=== PATIENT | male | born 1990 | race Caucasian/White ===

== ENCOUNTER 2020-10-10 16:36 | Emergency (ER) | payer MEDICAID ==
[~2020-10-10] VITALS: Ht 180.3 cm; Wt 76.2 kg
--- NOTE | 2020-10-10 16:53 | NUR ---
TO ER BED 1, C/O BACK PAIN FOR 3 DAYS, ATTACHED TO MONITOR, AWAITING MD TORRES
--- NOTE | 2020-10-10 16:55 | NUR ---
AT BEDSIDE FOR EVAL
--- NOTE | 2020-10-10 17:05 | NUR ---
TAKEN TO CT
[2020-10-10] MEDS ORDERED: KETOROLAC TROMETHAMINE INJ 30 MG/ML VIAL ONE (17:08)
[2020-10-10] MEDS ORDERED: CYCLOBENZAPRINE 10 MG TABLET ONE (17:08)
[2020-10-10] MEDS: KETOROLAC TROMETHAMINE INJ 60 MG/2 ML VIAL IM ONE (17:29)
[2020-10-10] MEDS: CYCLOBENZAPRINE 10 MG TABLET PO ONE (17:30)
[2020-10-10] MEDS ORDERED: CYCL5TAB PO (17:51)
[2020-10-10] MEDS ORDERED: IBUP-1957 PO (17:51)
[2020-10-10 18:07] VITALS: BP 132/80
== END 2020-10-10 18:08 | disposition home or self-care (01) ==
LOC: ER 16:45
DX: S29.012A Strain of muscle and tendon of back wall of thorax, initial encounter (principal); X58.XXXA Exposure to other specified factors, initial encounter; Y93.89 Activity, other specified; Y92.89 Other specified places as the place of occurrence of the external cause; Y99.8 Other external cause status
CPT/HCPCS: 72128; 96372; 99284; J1885

== ENCOUNTER 2021-03-04 14:57 | Emergency (ER) | payer MEDICAID ==
[~2021-03-04] VITALS: Ht 180.3 cm; Wt 76.2 kg
[~2021-03-04 14:57] MED LIST: CYCL5TAB PO; IBUP-1957 PO
--- NOTE | 2021-03-04 15:35 | NUR ---
URINE SPECIMEN COLLECTED AND SENT TO LAB.
--- NOTE | 2021-03-04 15:46 | NUR ---
JOEY REEDER AT BEDSIDE FOR EVAL.
[2021-03-04] MEDS ORDERED: FAMOTIDINE/PF INJ 20 MG/2 ML VIAL IV ONE ×2 (16:00→16:06)
[2021-03-04] MEDS ORDERED: LIDOCAINE VISCOUS 2% UD 15 ML UDC MM ONE (16:00)
[2021-03-04] MEDS ORDERED: MAG HYDROX/AL HYDROX/SIMETH 30 ML UDC PO ONE (16:00)
[2021-03-04] MEDS ORDERED: IV NS 0.9% 1,000 ML BAG IV ONE (16:00)
--- NOTE | 2021-03-04 16:00 | NUR ---
IV LINE ESTABLISHED BLOOD DRAWN AND SENT TO LAB.
[2021-03-04] MEDS ORDERED: MAG HYDROX/AL HYDROX/SIMETH 30 ML UDC ONE (16:05)
[2021-03-04] MEDS ORDERED: LIDOCAINE VISCOUS 2% UD 15 ML UDC ONE (16:05)
[2021-03-04 16:10] LABS: BASOPHILS % (AUTO) 0.2 % (0.0-2.0); EOSINOPHILS % (AUTO) 1.2 % (0.0-6.0); HEMATOCRIT 43 % (39-51); HEMOGLOBIN 14.7 g/dL (13.5-17.5); LYMPHOCYTES # (AUTO) 1.5 K/uL (0.8-4.8); LYMPHOCYTES % (AUTO) 19.8 % (20.0-44.0); MEAN CORPUSCULAR HGB CONC 34 g/dl (31.0-36.0); MEAN CORPUSCULAR VOLUME 87 fL (80-96); MONOCYTES # (AUTO) 0.9 K/uL (0.1-1.30); MONOCYTES % (AUTO) 12.6 % (2.0-12.0); NEUTROPHILS % (AUTO) 66.2 % (43.0-81.0); PLATELET COUNT (AUTO) 184 K/uL (150-450); RED BLOOD CELL COUNT(AUTO) 4.94 MIL/uL (4.5-6.0); WHITE BLOOD COUNT (AUTO) 7.5 K/uL (4.3-11.0)
[2021-03-04 16:40] LABS: ALBUMIN 4.2 g/dL (3.4-5.0); BILIRUBIN,DIRECT 0.1 mg/dL (0.0-0.2); BILIRUBIN,TOTAL 0.6 mg/dL (0.2-1.0); CREATININE 0.9 mg/dL (0.6-1.3); TOTAL PROTEIN, SERUM 7.6 g/dL (6.4-8.2)
[2021-03-04] MEDS ORDERED: OMEP20CA15 PO (17:07)
[2021-03-04 17:14] VITALS: BP 135/72
--- NOTE | 2021-03-04 17:14 | NUR ---
IV removed. Catheter intact and site benign. Pressure and 4x4 applied to site. No bleeding noted. Patient discharged to home in stable condition. Written and verbal after care instructions given. Patient verbalizes understanding of instruction.
== END 2021-03-04 17:15 | disposition home or self-care (01) ==
LOC: ER 15:04
DX: K29.70 Gastritis, unspecified, without bleeding (principal); F17.200 Nicotine dependence, unspecified, uncomplicated; Z60.2 Problems related to living alone; Z79.899 Other long term (current) drug therapy
CPT/HCPCS: 36415; 71045; 80048; 80076; 83690; 85025; 93005; 96361; 96374; 99285; J3490; J7030

== ENCOUNTER 2022-01-27 21:43 | Emergency (ER) | payer MEDICAID ==
[~2022-01-27] VITALS: Ht 175.3 cm; Wt 79.4 kg
[~2022-01-27 21:43] MED LIST changes: +OMEP20CA15 PO
--- NOTE | 2022-01-27 23:15 | NUR ---
URINE COLLECTED AND SENT TO LAB
[2022-01-27] MEDS ORDERED: IV NS 0.9% 1,000 ML BAG IV ONE (23:30)
[2022-01-27] MEDS ORDERED: FAMOTIDINE/PF INJ 20 MG/2 ML VIAL IV ONE ×2 (23:30→23:54)
[2022-01-27] MEDS ORDERED: DICYCLOMINE HCL 10 MG CAPSULE PO ONE ×2 (23:30→23:54)
[2022-01-27] MEDS ORDERED: MAG HYDROX/AL HYDROX/SIMETH 30 ML UDC PO ONE (23:30)
[2022-01-27] MEDS ORDERED: ONDANSETRON HCL/PF 4 MG/2 ML VIAL IVP ONE (23:30)
--- NOTE | 2022-01-27 23:51 | NUR ---
BLOOD DRAWN BY DOOR BUILDER
[2022-01-27] MEDS ORDERED: MAG HYDROX/AL HYDROX/SIMETH 30 ML UDC ONE (23:54)
[2022-01-27] MEDS ORDERED: ONDANSETRON HCL/PF 4 MG/2 ML VIAL ONE (23:54)
--- NOTE | 2022-01-27 23:56 | NUR ---
BROUGHT TO CT DEPT
[2022-01-28 00:11] LABS: BASOPHILS % (AUTO) 0.1 % (0.0-2.0); HEMATOCRIT 38 % (39-51); HEMOGLOBIN 12.9 g/dL (13.5-17.5); LYMPHOCYTES # (AUTO) 1.1 K/uL (0.8-4.8); LYMPHOCYTES % (AUTO) 15.1 % (20.0-44.0); MEAN CORPUSCULAR HGB CONC 34 g/dl (31.0-36.0); MEAN CORPUSCULAR VOLUME 85 fL (80-96); MONOCYTES % (AUTO) 13.4 % (2.0-12.0); NEUTROPHILS # (AUTO) 5.4 K/uL (1.8-8.9); NEUTROPHILS % (AUTO) 71.4 % (43.0-81.0); PLATELET COUNT (AUTO) 153 K/uL (150-450); RED BLOOD CELL COUNT(AUTO) 4.49 MIL/uL (4.5-6.0); WHITE BLOOD COUNT (AUTO) 7.5 K/uL (4.3-11.0)
[2022-01-28 00:36] LABS: BILIRUBIN,DIRECT 0.2 mg/dL (0.0-0.2); BILIRUBIN,TOTAL 0.8 mg/dL (0.2-1.0); CALCIUM, SERUM 8.7 mg/dL (8.5-10.1); CREATININE 1.1 mg/dL (0.6-1.3); POTASSIUM 3.2 mmol/L (3.5-5.1); TOTAL PROTEIN, SERUM 7.2 g/dL (6.4-8.2)
[2022-01-28] MEDS ORDERED: POTASSIUM CHLORIDE 20 MEQ TAB.PRT.SR PO ONE ×2 (01:30→01:31)
[2022-01-28] MEDS ORDERED: DICY10CA37 PO (01:49)
[2022-01-28] MEDS ORDERED: FAMO40TA7 PO (01:49)
--- NOTE | 2022-01-28 02:05 | NUR ---
Patient discharged to home in stable condition. Written and verbal after care instructions given. Patient verbalizes understanding of instruction.
[2022-01-28 04:32] VITALS: BP 116/71
== END 2022-01-28 04:32 | disposition home or self-care (01) ==
LOC: ER 21:46
DX: K29.70 Gastritis, unspecified, without bleeding (principal); F17.200 Nicotine dependence, unspecified, uncomplicated; Z60.2 Problems related to living alone; Z79.899 Other long term (current) drug therapy
CPT/HCPCS: 99284; 74176; 85025; 80048; 83690; 80076; 36415; 96374; 96361; 96375; J3490; J2405; J7030

== ENCOUNTER 2022-05-17 03:18 | Emergency (ER) | payer MEDICAID ==
[~2022-05-17] VITALS: Ht 175.3 cm; Wt 72.6 kg
[~2022-05-17 03:18] MED LIST changes: +DICY10CA37 PO; +FAMO40TA7 PO
[2022-05-17 04:02] VITALS: BP 123/76
--- NOTE | 2022-05-17 04:11 | NUR ---
Patient discharged to home in stable condition. Written and verbal after care instructions given. Patient verbalizes understanding of instruction. Pt ambulatory with a steady gait
== END 2022-05-17 04:11 | disposition home or self-care (01) ==
LOC: ER 03:22
DX: H92.01 Otalgia, right ear (principal); F17.200 Nicotine dependence, unspecified, uncomplicated; Z79.899 Other long term (current) drug therapy